=== PATIENT | female | born 1995 | race Caucasian/White ===

== ENCOUNTER 2017-06-01 17:24 | Emergency (ER) | payer OTHER ==
[2017-06-01 17:28] VITALS: TEMP 98
[2017-06-01] MEDS ORDERED: ALBUTEROL NEBULIZED 2.5 MG/3 ML INHALATION STA (17:39)
--- NOTE | 2017-06-01 18:22 | XR ---
EXAMINATION TYPE: XR chest 2V DATE OF EXAM: 06/01/2017 COMPARISON: NONE HISTORY: Shortness of breath TECHNIQUE: Frontal and lateral views of the chest are obtained. FINDINGS: There is no focal air space opacity, pleural effusion, or pneumothorax seen. The cardiac silhouette size is within normal limits. The osseous structures are intact. IMPRESSION: No acute cardiopulmonary process.
--- NOTE | 2017-06-01 18:31 | ED ---
SOB HPI - General Chief Complaint: Shortness of Breath Stated Complaint: diff breathing, 33 wks preg Time Seen by Provider: 06/01/17 17:32 Source: patient, RN notes reviewed Mode of arrival: ambulatory Limitations: no limitations - History of Present Illness Initial Comments: This a 21-year-old female presents emergency Department with chief complaint of shortness breath. She states she felt Lopressor infection last couple weeks which is started as sinus congestion and has moved towards her chest. She states that the congestion is getting better but states that she fell feels short of breath at times. She states that she has been coughing is productive. She denies any fever, chills, palpitations. Patient states she is 33 weeks and having no compilations. She denies any vaginal bleeding vaginal discharge. She states she still feels baby kicking and moving constantly. Patient states that she has no history of asthma no lung problems and denies smoking. She denies any orthopnea, lower extremity swelling or pain denies pleuritic chest pain. - Related Data Home Medications Medication Instructions Recorded Confirmed Ufb-Brzu-Sakjm Acid 1 cap PO DAILY 06/01/17 06/01/17 [-U Capsule (formulary)] Previous Rx's Medication Instructions Recorded Albuterol Sulfate [Proair Hfa] 1 - 2 puff INHALATION Q4HR PRN #1 06/01/17 inhaler Allergies Allergy/AdvReac Type Severity Reaction Status Date / Time No Known Allergies Allergy Verified 06/01/17 17:34 Review of Systems ROS Statement: Those systems with pertinent positive or pertinent negative responses have been documented in the HPI. ROS Other: All systems not noted in ROS Statement are negative. Past Medical History Past Medical History: No Reported History History of Any Multi-Drug Resistant Organisms: None Reported Past Surgical History: Tonsillectomy Past Psychological History: No Psychological Hx Reported Smoking Status: Never smoker Past Alcohol Use History: None Reported Past Drug Use History: None Reported General Exam Limitations: no limitations General appearance: alert, in no apparent distress Head exam: Present: atraumatic, normocephalic, normal inspection Eye exam: Present: normal appearance, PERRL, EOMI. Absent: scleral icterus, conjunctival injection, periorbital swelling ENT exam: Present: normal exam, normal oropharynx, mucous membranes moist, TM's normal bilaterally, normal external ear exam Neck exam: Present: normal inspection, full ROM. Absent: tenderness, meningismus, lymphadenopathy Respiratory exam: Present: wheezes (Faint). Absent: normal lung sounds bilaterally, respiratory distress, rales, rhonchi, stridor Cardiovascular Exam: Present: regular rate, normal rhythm, normal heart sounds. Absent: systolic murmur, diastolic murmur, rubs, gallop, clicks Course Vital Signs 06/01/17 06/01/17 06/01/17 17:26 17:51 17:59 Temperature 98.0 F Pulse Rate 70 70 80 Respiratory 20 20 Rate Blood Pressure 139/80 O2 Sat by Pulse 98 Oximetry 06/01/17 18:20 Temperature Pulse Rate 98 Respiratory 18 Rate Blood Pressure 129/75 O2 Sat by Pulse 96 Oximetry Medical Decision Making - Medical Decision Making 21-year-old female presented emergency department for shortness of breath URI symptoms. She states she feels much improved after albuterol updrafts. She states that she feels like she is moving air easily or and is able to ambulate with no shortness of breath. Patient's vitals are stable she is satting 100 % At This Time after Treatment. Patient Has No Evidence of Tachycardia Is No Exertional Shortness of Breath or Pleuritic Chest Pain. Patient Will Follow-Up with [facility] PROGRAM COORDINATOR and Return If Symptoms Worsen. Disposition Clinical Impression: Bronchospasm Disposition: HOME SELF-CARE Condition: Stable Instructions: Bronchospasm (ED) Additional Instructions: Please return to the Emergency Department if symptoms worsen or any other concerns. Prescriptions: Albuterol Sulfate [Proair Hfa] 1 - 2 puff INHALATION Q4HR PRN #1 inhaler PRN Reason: difficulty in breathing Referrals: None,Stated [Primary Care Provider] - 1-2 days Time of Disposition: 18:31
[2017-06-01 18:45] VITALS: BP 131/74; PULSE 110; RESP 16
== END 2017-06-01 18:44 | disposition home or self-care (01) ==
LOC: EC 17:24
DX: O99.513 Diseases of the respiratory system complicating pregnancy, third trimester (principal); J98.01 Acute bronchospasm; Z3A.33 33 weeks gestation of pregnancy; Z79.899 Other long term (current) drug therapy
CPT/HCPCS: 71020; 94640; 99285

== ENCOUNTER 2017-07-24 22:29 | Inpatient (IN) | payer OTHER ==
[2017-07-24] MEDS ORDERED: CARBOPROST TROMETHAMINE 250 MCG/ML 1 ML AMP IM PRN (23:09)
[2017-07-24] MEDS ORDERED: METHYLERGONOVINE 0.2 MG/ML 1 ML AMP IM PRN (23:09)
[2017-07-24] MEDS ORDERED: LIDOCAINE 1% (PF) 10 MG/ML (30 ML SDV) SQ PRN (23:09)
[2017-07-24] MEDS ORDERED: TERBUTALINE 1 MG/ML VIAL SQ PRN (23:09)
[2017-07-24] MEDS ORDERED: OXYTOCIN 10 UNIT/ML 1 ML VIAL IM PRN (23:09)
[2017-07-24] MEDS ORDERED: BUTORPHANOL 1 MG/ML 1 ML VIAL IV PRN (23:12)
[2017-07-24] MEDS ORDERED: OXYTOCIN 20 UNITS/1000 ML NS 1,000 ML IV SCH (23:15)
[2017-07-24 23:36] LABS: Basophils # (A) 0.1 k/uL (0-0.2); Basophils % (A) 0 %; CH 28.4; CHCM 31.8; Eosinophils # (A) 0.1 k/uL (0-0.7); Eosinophils % (A) 1 %; HGB 12.2 gm/dL (11.4-16.0); Hypochromasia Slight; Luc # (Auto) 0.19; Luc % (Auto) 2; Lymphocytes # (A) 2.4 k/uL (1.0-4.8); Lymphocytes % (A) 19 %; MCH 27.4 pg (25.0-35.0); MCHC 30.6 g/dL (31.0-37.0); MCV 89.8 fL (80.0-100.0); Monocytes # (A) 0.7 k/uL (0-1.0); Monocytes % (A) 6 %; Neutrophils # (A) 8.8 k/uL (1.3-7.7); Neutrophils % (A) 72 %; RBC 4.46 m/uL (3.80-5.40); RDW 14.8 % (11.5-15.5); WBC 12.2 k/uL (4.0-11.0); WBC (Perox) 11.52
[2017-07-24 23:54] LABS: ALT 27 U/L (9-52); AST 20 U/L (14-36); Blood Urea Nitrogen 14 mg/dL (7-17); LDH 376 U/L (313-618); Non-African American GFR(MDRD) >60 (>60 ml/min/1.73 sqM); Uric Acid 5.3 mg/dL (3.7-7.4)
[2017-07-25 00:15] VITALS: BMI 27.1
[2017-07-25] MEDS: LACTATED RINGERS 1,000 ML IV SCH ×3 (00:43→19:44)
[2017-07-25 01:43] LABS: Appearance,Urine Clear (Clear); Bacteria,Urine Rare /hpf; Bilirubin,Urine Negative (Negative); Glucose,Urine (UA) Negative (Negative); Ketones,Urine Negative (Negative); Leukocyte Esterase,Urine Trace (Negative); Mucus,Urine Rare /hpf; Nitrite,Urine Negative (Negative); PH, Urine 5.5 (5.0-8.0); Particle Count 2637; Protein,Urine Negative (Negative); RBC,Urine 1 /hpf (0-5); Specific Gravity,Urine 1.017 (1.001-1.035); Squamous Epithelial Cell,Urine 2 /hpf (0-4); UA Billing (MACRO vs. MICRO) MICRO; Urobilinogen,Urine <2.0 mg/dL (<2.0); WBC,Urine 3 /hpf (0-5)
[2017-07-25] MEDS ORDERED: BUPIVACAINE (PF) 0.25% 30 ML VIAL ONE (03:00)
[2017-07-25] MEDS ORDERED: SODIUM CHLORIDE 0.9% 100 ML BAG ONE (03:00)
[2017-07-25] MEDS ORDERED: fentaNYL (PF) 50 MCG/ML 5 ML AMP ONE (03:00)
[2017-07-25] MEDS ORDERED: BUPIVACAINE (PF) 0.25% 25 ML, fentaNYL (PF) 200 MCG in SODIUM CHLORIDE 0.9% 71 ML EPIDURAL ONE (03:26)
--- NOTE | 2017-07-25 07:00 | P.HPOB ---
History of Present Illness H&P Date: 07/25/17 Chief Complaint: 40-4/7 weeks, labor The patient is a 21-year-old 1 para 0 admitted at 40-4/7 weeks as established by last menstrual period and confirmed by second trimester ultrasound. She is admitted in early labor with all signs reassuring. Her has been essentially uncomplicated though she was a transfer patient to our office with some limited care. Group B strep status is negative. Obstetrical history 1 para 0 with current statistics listed in history of present illness. EDC of 07/21/2017 was established by last menstrual period and confirmed by second trimester ultrasound. Laboratory workup demonstrates a blood type of O+ with a negative antibody screen. Rubella status is immune. All other laboratory workup was within normal limits the. Second trimester Glucola was normal and group B strep status is negative. Gynecologic history is unremarkable with no history of any infections to include STDs. Review of Systems Review of systems is confined to history of present illness. Past Medical History Past Medical History: Asthma History of Any Multi-Drug Resistant Organisms: None Reported Past Surgical History: Tonsillectomy Past Anesthesia/Blood Transfusion Reactions: No Reported Reaction Past Psychological History: Anxiety, Depression Smoking Status: Never smoker Past Alcohol Use History: None Reported Past Drug Use History: Marijuana Additional Drug Use History / Comment(s): Patient states her use of THC during the has been minimal, but that the last time she smoked it was 2 weeks ago. - Past Family History Mother Family Medical History: Cancer Additional Family Medical History / Comment(s): Brain cancer as a child, Migraines Brother(s) Additional Family Medical History / Comment(s): Anxiety, Depression Sister(s) Additional Family Medical History / Comment(s): Aspbergers Medications and Allergies Home Medications Medication Instructions Recorded Confirmed Type Albuterol Sulfate [Proair Hfa] 1 - 2 puff INHALATION Q4HR PRN #1 06/01/17 Rx inhaler Wtn-Mznu-Pivuw Acid 1 cap PO DAILY 06/01/17 07/24/17 History [-U Capsule (formulary)] Allergies Allergy/AdvReac Type Severity Reaction Status Date / Time No Known Allergies Allergy Verified 07/24/17 22:43 Exam - Vital Signs Vital signs: Vital Signs Temp Pulse Resp BP 07/25/17 00:00 97.1 F L 65 16 133/88 07/24/17 22:45 97.1 F L 64 16 148/90 Intake and Output 07/24/17 07/24/17 07/25/17 14:59 22:59 06:59 Intake Total 1000 Balance 1000 Intake: Intake, IV Titration 1000 Amount Lactated Ringers 1,000 ml 1000 @ 125 mls/hr IV .Q8H [facility] Rx#:[id number] Other: # Voids 1 Weight 67.132 kg 67.132 kg Patient Weight 07/25/17 06:59 Weight 67.132 kg General, this is a well-developed, well-nourished white female in no acute distress at presentation. Her heart has a regular rhythm and rate without murmur. Her lungs are clear to auscultation bilaterally in all henderson. Her abdomen is gravid, nondistended, has normal active bowel sounds, is soft, nontender, and without any palpable masses aside from the uterine fundus. Her extremities without any cyanosis, clubbing, or edema and are nontender to palpation bilaterally. Digital cervical examination interested surgery 2-3 cm, 50% effaced, with the vertex in presentation at -2 station. Results Result Diagrams: 07/24/17 23:23 07/24/17 23:23 Abnormal Lab Results - Last 24 Hours (Table) 07/24/17 07/25/17 Range/Units 23:23 00:34 WBC 12.2 H (4.0-11.0) k/uL MCHC 30.6 L (31.0-37.0) g/dL Neutrophils # 8.8 H (1.3-7.7) k/uL Urine Blood Trace H (Negative) Ur Leukocyte Esterase Trace H (Negative) Urine Bacteria Rare H (None) /hpf Urine Mucus Rare H (None) /hpf Assessment and Plan (1) Active labor at term Current Visit: Yes Status: Acute Code(s): QJB8231 - SNOMED Code(s): 24980234 Plan: Patient is admitted for active management of labor. She will have close maternal and surveillance and expectant management will be practice. She is a good candidate for either IV or epidural analgesia, whichever she may choose.
[2017-07-25] MEDS ORDERED: LANOLIN CREAM 5 GM TUBE TOPICAL PRN (07:26)
[2017-07-25] MEDS ORDERED: SIMETHICONE 80 MG CHEWABLE PO PRN (07:26)
[2017-07-25] MEDS ORDERED: WITCH HAZEL 1 EACH MED..PAD TOPICAL PRN (07:26)
[2017-07-25] MEDS ORDERED: HYDROCORTISONE 2.5% RECTAL CREAM 30 GM TUBE RECTAL PRN (07:26)
[2017-07-25] MEDS ORDERED: diphenhydrAMINE 50 MG/ML 1 ML VIAL IVP PRN ×2 (07:26)
[2017-07-25] MEDS ORDERED: BENZOCAINE/MENTHOL SPRAY 1 GM/SPRAY AEROSOL TOPICAL PRN (07:26)
[2017-07-25] MEDS ORDERED: IBUPROFEN 600 MG TAB PO PRN (07:26)
[2017-07-25] MEDS ORDERED: ACETAMINOPHEN TAB 325 MG TAB PO PRN (07:26)
[2017-07-25] MEDS ORDERED: ZOLPIDEM 5 MG TAB PO PRN (07:26)
[2017-07-25] MEDS ORDERED: diphenhydrAMINE 25 MG CAP PO PRN (07:26)
[2017-07-25] MEDS ORDERED: diphenhydrAMINE 50 MG CAP PO PRN (07:26)
[2017-07-25] MEDS ORDERED: Acetaminophen-Codeine 300-30mg TAB PO PRN ×2 (07:26)
--- NOTE | 2017-07-25 07:31 | P.PROBDLV ---
Vaginal Delivery Note - . Vaginal Delivery Note: The patient is a 21-year-old 1 para 0 admitted at 40-4/7 weeks by last menstrual period and second trimester ultrasound. She is admitted in early labor with all signs reassuring. She had been scheduled for induction of labor this morning by presented approximately 12 hours prior to this in early labor. On admission, all signs reassuring. Her was complicated only by relatively poor maternal weight gain for which she underwent weekly nonstress testing which was reassuring. She also had a limited amount of the care having transferred to our practice fairly late in the . On labor and delivery, she made progress to the active phase of labor and had an epidural catheter placed for analgesia. She made fairly steady and relatively rapid progress through the active phase of labor to approximately 9 cm at which time spontaneous rupture of membranes occurred demonstrating relatively thick meconium-stained fluid. She then progressed quickly to complete and pushed over the course of 15 minutes to a normal spontaneous vaginal delivery of a viable 5 lbs. 10 oz. baby boy with Apgars of 8 at 1 minute and 9 at 5 minutes. Thorough suctioning was carried out on the perineum and the infant was the immediately vigorous upon delivery. As result, direct laryngoscopy was not carried out and the nurse cook specialty foreign food released. The placenta was delivered spontaneously, intact, and grossly normal though there were 2 apparent areas of probable infarct in the placenta itself was generally quite small. It did also have a grossly normal, centrally inserted three-vessel cord. There were no lacerations of the perineum, vagina, or cervix. Estimated blood loss for the case was approximately 250 mL. There were no complications. All sponge, instrument, and needle counts were correct. Both mother and infant are resting comfortably in recovery.
[2017-07-25] MEDS: SENNOSIDES-DOCUSATE SODIUM 1 EACH TAB PO SCH ×2 (10:16→19:44)
[2017-07-26] MEDS: SENNOSIDES-DOCUSATE SODIUM 1 EACH TAB PO SCH ×2 (09:48→23:01)
--- NOTE | 2017-07-26 11:56 | P.MSEPDOC ---
Presenting Problems - Arrival Data Date of Arrival on Unit: 07/24/17 Time of Arrival on Unit: 23:02 Mode of Transport: Wheelchair - Complaint OB-Reason for Admission/Chief Complaint: Possible Onset of Labor Comment: Contractions every 2 mintues, morning induction Medical History - Information : 1 Para: 0 Term: 0 : 0 Abortions: Spontaneous or Elective: 0 Number of Living Children: 0 - Gestational Age Gestational Age by MARY (wks/days): 40 Weeks and 4 Days - History Complications: Hx. Substance Abuse Comment: Smoked THC in , last smoked 2 weeks ago. Patient states use was very minimal. Review of Systems - Review of Systems Constitutional: No problems Breast: No problems ENT: No problems Cardiovascular: No problems Respiratory: No problems Gastrointestinal: No problems Genitourinary: No problems Musculoskeletal: No problems Neurological: No problems Skin: No problems Vital Signs - Temperature Temperature: 98.4 F Temperature Source: Oral - Pulse Pulse Oximetery Pulse Rate: 67 Pulse Assessment Method: Automatic Cuff - Respirations Respiratory Rate: 16 O2 Sat by Pulse Oximetry: 99 - Blood Pressure Sitting Blood Pressure: 96/49 Blood Pressure Mean: 64 Blood Pressure Source: Automatic Cuff Medical Screen Scoring (Pre) - Cervical Exam Dilation: 1-3 cm = 1 Effacement: More than 50% = 2 Membranes: Intact - Uterine Contractions Frequency: > or = 36 weeks =2 Duration: > 40 seconds = 2 Intensity: N/A - Maternal Vital Signs Maternal Temperature: N/A Maternal Blood Pressure: N/A Signs of Preeclampsia: N/A Maternal Respirations: N/A - Maternal Trauma Maternal Trauma: N/A - Assessment Baseline FHR: 130 Heart Rate - NICHD Category: Category I (Normal) = 0 NST: Reactive Position: N/A Station: N/A - Total Score Total Score (Pre): 7 - Level of Risk Level of Risk: Medium (6-9) Physician Notification (Pre) - Physician Notified Physician Notified Date: 07/25/17 Physician Notified Time: 23:02 Physician/Practitioner Notifed:: Dr. Nicolas - Notification Comment Comment: Orders given to admit patient for labor, draw PIH labs, initiate IV, Start pitocin at [phone] if patient has not gone into active labor, Patient may have stadol 1mg iv push every 2 hours and an epidural if she is in active labor and making cervical change, call physician if and when needed Disposition - Disposition OB Disposition: Admit, LDRP Suite Transferred to:: Suite 12 I agree with the RN Medical Screening Exam: Yes Risk & Benefit of care provided described in d/c instruction: Yes Diagnosis: ONSET LABOR 37-39 WEEKS, W DEL BY (PLANNED) SECTION
--- NOTE | 2017-07-26 12:47 | P.PNOBGVD ---
Subjective - Subjective Principal diagnosis: day 1 normal spontaneous vaginal delivery Interval history: this is a 21-year-old 1 para 0 that presented on 11 with complaints of contractions. She progressed throughout the night and eventually had a normal spontaneous vaginal delivery of a viable male infant at 711. Her course has been benign. She is feeling well denies pain. She is ambulating and voiding without difficulty. She denies nausea or vomiting with eating and is tolerating a regular diet. Patient reports: Reports appetite normal, Reports voiding normally, Reports pain well controlled, Reports ambulating normally (in the nursery with low blood sugars echo is pending secondary to cyanosis) Objective - Latest Vital Signs Latest vital signs: Vital Signs Temp Pulse Resp BP Pulse Ox 07/26/17 11:56 98.4 F 67 16 96/49 99 07/26/17 08:00 98.4 F 67 16 96/49 99 07/26/17 00:00 98.1 F 70 16 126/69 07/25/17 20:00 98.5 F 75 16 129/80 07/25/17 15:29 98.8 F 84 18 130/79 96 Intake and Output 07/25/17 07/26/17 07/26/17 22:59 06:59 14:59 Other: # Voids 1 1 - Exam Lungs: bilateral: normal Extremities: Present: normal Abdomen: Present: normal appearance, soft Uterus: Present: firm Assessment and Plan (1) Active labor at term Narrative/Plan: we'll continue with routine care. Infant is being worked up for cyanosis around his lips will continue to await pediatric recommendations. Current Visit: Yes Status: Acute Code(s): [id number] - SNOMED Code(s): 78780423 (2) Meconium in amniotic fluid affecting management of mother Current Visit: Yes Status: Acute Code(s): O36.8990 - MATERNAL CARE FOR OTH PROBLEMS, UNSP TRIMESTER, UNSP SNOMED Code(s): 57785342 (3) Normal spontaneous vaginal delivery Current Visit: Yes Status: Acute Code(s): O80 - ENCOUNTER FOR FULL-TERM UNCOMPLICATED DELIVERY SNOMED Code(s): 51199973 (4) Post-dates Current Visit: Yes Status: Acute Code(s): O48.0 - POST-TERM SNOMED Code(s): 86927031
--- NOTE | 2017-07-26 12:53 | P.DS ---
Providers Date of admission: 07/24/17 22:48 Expected date of discharge: 07/27/17 Attending physician: Marita Davalos Primary care physician: Stated None - Discharge Diagnosis(es) (1) Active labor at term this is a very pleasant 21-year-old 1 para 0 at 40-4/7 weeks that presented to labor and delivery in 07 25 with complaints of contractions. She was scheduled for an elective induction of labor the following day she was admitted and progressed throughout labor eventually having a normal spontaneous vaginal delivery of a viable male at 711. Meconium-stained fluid was noted. Apgars were 8 and 9 at one and 5 minutes respectively. Weight of 5-10, (name isiah diallo). 24 hours after delivery that was noted have cyanotic lips when placed on the pulse ox monitor normal O2 saturation was noted. Patient is currently being worked up with echo and blood pressure evaluation in his extremities. We will await all results from pediatrics. Plan to discharge Saturday, @ 48 hours given infant is being evaluated by pediatrics at this time. Current Visit: Yes Status: Acute (2) Meconium in amniotic fluid affecting management of mother Current Visit: Yes Status: Acute (3) Normal spontaneous vaginal delivery Current Visit: Yes Status: Acute (4) Post-dates Current Visit: Yes Status: Acute Plan - Discharge Summary Discharge Rx Participant: No New Discharge Prescriptions: No Action Ary-Yeyc-Jodmq Acid [-U Capsule (formulary)] 1 cap PO DAILY Albuterol Sulfate [Proair Hfa] 1 - 2 puff INHALATION Q4HR PRN #1 inhaler PRN Reason: difficulty in breathing Discharge Medication List Albuterol Sulfate [Proair Hfa] 1 - 2 puff INHALATION Q4HR PRN #1 inhaler [Rx] Csz-Axrg-Wsjjv Acid [-U Capsule (formulary)] 1 cap PO DAILY 06/09 [History] Follow up Appointment(s)/Referral(s): Marita Davalos DO [Doctor of Osteopathic Medicine] - 2 Weeks Patient Instructions/Handouts: Vaginal Delivery (DC) Discharge Disposition: HOME SELF-CARE
[2017-07-26 23:27] VITALS: RESP 16
[2017-07-27 09:03] VITALS: BP 121/85; PULSE 73; TEMP 98.4
--- NOTE | 2017-07-27 11:23 | P.DS ---
Providers Date of admission: 07/24/17 22:48 Expected date of discharge: 07/27/17 Attending physician: Marita Davalos Primary care physician: Stated None Hospital Course: 1 para 0 EDC 07/21/2017 at 40-4/7 weeks' gestation. Patient presented in active labor, remarkable for intrauterine growth restriction. Patient is group B strep cultures negative, blood type O+, rubella status immune. Please see dictated history and physical for details. Patient went on to deliver spontaneously a liveborn male , with scores of 8 and 9 at one and 5 minutes respectively. There was thick meconium noted during the course of labor. She had a very short second stage of labor, 16 minutes. weighed 5 lbs. 10 oz. or 2555 g. There was an estimated blood loss of 250 mL, a nuchal cord 1, and no perineal lacerations. Please see dictated delivery note for details. This morning the patient is doing well. Vital signs are stable and she is afebrile. Fundus is firm and in the midline, symmetric and 18 week size. Extremities reveal no edema. Perineal body is clean and dry. Circumcision has been performed. Pain is well controlled with ibuprofen. Patient is being discharged home in very good condition. I have given her prescription for a double electric breast pump to be used as needed. She will use rydq-vjn-[id number] ibuprofen products, 200 mg pills, 3 every 6 hours as needed. Will continue taking her vitamin daily. I have asked her to call with any fevers shakes or chills, foul smelling or copious lochia, with the passage of large blood clots, with any pain not alleviated by over-the- counter ibuprofen, or indeed with any concerns. I have reminded her no intercourse, tampons or douching. She will consider her contraceptive options and this will be discussed further in the office. Patient Condition at Discharge: Good Plan - Discharge Summary Discharge Rx Participant: No New Discharge Prescriptions: No Action Jqj-Wlnc-Lhwcw Acid [-U Capsule (formulary)] 1 cap PO DAILY Albuterol Sulfate [Proair Hfa] 1 - 2 puff INHALATION Q4HR PRN #1 inhaler PRN Reason: difficulty in breathing Discharge Medication List Albuterol Sulfate [Proair Hfa] 1 - 2 puff INHALATION Q4HR PRN #1 inhaler [Rx] Rjz-Fkzu-Ifygr Acid [-U Capsule (formulary)] 1 cap PO DAILY 06/09 [History] Follow up Appointment(s)/Referral(s): Marita Davalos DO [Doctor of Osteopathic Medicine] - 6 Weeks Patient Instructions/Handouts: Vaginal Delivery (DC) Discharge Disposition: HOME SELF-CARE
== END 2017-07-27 12:59 | disposition home or self-care (01) | DRG 560 ==
LOC: FBPOP 22:29 → 4FBP 22:48
PROVIDERS: ADMIT Obstetrics & Gynecology; ATTEND Obstetrics & Gynecology Obstetrics
PROC: 00HU33Z Insertion of Infusion Device into Spinal Canal, Percutaneous Approach (ICD-10-PCS; 2017-07-24)
PROC: 3E0R3BZ Introduction of Anesthetic Agent into Spinal Canal, Percutaneous Approach (ICD-10-PCS; 2017-07-24)
PROC: 10E0XZZ Delivery of Products of Conception, External Approach (ICD-10-PCS; principal; 2017-07-25)
DX: O36.5930 Maternal care for other known or suspected poor fetal growth, third trimester, not applicable or unspecified (principal); O99.323 Drug use complicating pregnancy, third trimester; J45.909 Unspecified asthma, uncomplicated; O99.52 Diseases of the respiratory system complicating childbirth; O69.81X0 Labor and delivery complicated by cord around neck, without compression, not applicable or unspecified; O69.3XX0 Labor and delivery complicated by short cord, not applicable or unspecified; O48.0 Post-term pregnancy; O77.0 Labor and delivery complicated by meconium in amniotic fluid; Z3A.40 40 weeks gestation of pregnancy; Z37.0 Single live birth; Z79.899 Other long term (current) drug therapy; Z86.59 Personal history of other mental and behavioral disorders; F12.90 Cannabis use, unspecified, uncomplicated; Z81.8 Family history of other mental and behavioral disorders
CPT/HCPCS: 59025; 81001; 82565; 83615; 84450; 84460; 84520; 84550; 85025; 88307; 99213